=== PATIENT | male | born 2000 | race African-American/Black ===

== ENCOUNTER 2024-04-19 23:08 | Emergency (ER) | payer OTHER ==
[2024-04-19 23:24] VITALS: BP 142/91; PULSE 81; RESP 18; TEMP 98.3; BMI 26.6
[2024-04-20] MEDS ORDERED: IBUPROFEN 400 MG TABLET (FP) PO ONE (01:08)
[2024-04-20] MEDS: IBUPROFEN 400 MG TABLET (FP) PO ONE (01:08)
[2024-04-20] MEDS ORDERED: LIDOCAINE 4% PATCH TP ONE (01:10)
[2024-04-20] MEDS: LIDOCAINE 5% TOPICAL PATCH TP ONE (01:11)
== END 2024-04-20 01:17 | disposition home or self-care (01) ==
LOC: JER 23:08
DX: R07.89 Other chest pain (principal); R05.9 Cough, unspecified; Z20.822 Contact with and (suspected) exposure to COVID-19
CPT/HCPCS: 0241U-QW; 71046-TC-FY; 93005; 93010; 99285-25